=== PATIENT | female | born 1990 | race Two or more races ===

== ENCOUNTER 2017-12-16 04:05 | Inpatient (IN) | payer OTHER ==
[2017-12-16] MEDS: LACTATED RINGER'S 1,000 ML IV* (04:45)
[2017-12-16] MEDS ORDERED: LACTATED RINGER'S 1,000 ML IV (05:02)
[2017-12-16 05:21] LABS: ADD MAN DIFF? NO
[2017-12-16 05:28] LABS: WHITE BLOOD COUNT 7.5 10^3/ul (4.8-10.8)
[2017-12-16 05:28] LABS: BASOPHILS % 0.4 % (0.0-2.0); EOSINOPHILS % 0.5 % (0.0-7.0); HEMATOCRIT 31.5 % (37.0-47.0); HEMOGLOBIN 11.1 g/dl (12.0-16.0); LYMPHOCYTES # 1.8 10^3/ul (0.8-2.9); LYMPHOCYTES % 23.4 % (15.0-51.0); MEAN CORPUSCULAR HGB CONC 35.2 g/dl (32.0-37.0); MEAN CORPUSCULAR VOLUME 90.8 fl (82.0-101.0); MEAN PLATELET VOLUME 10.9 fl (7.4-10.4); MONOCYTE # 0.6 10^3/ul (0.3-0.9); MONOCYTES % 8.5 % (0.0-11.0); NEUTROPHILS % 66.9 % (39.0-77.0); PLATELET COUNT 169 10^3/UL (140-415); RED BLOOD COUNT 3.47 10^6/ul (4.20-5.40); RED CELL DISTRIBUTION WIDTH 12.2 % (11.5-14.5)
[2017-12-16] MEDS ORDERED: CARBOPROST 250 MCG INJ IM ×2 (05:30→06:30)
[2017-12-16] MEDS ORDERED: METHYLERGONOVINE 0.2 MG INJ IM ×2 (05:30→06:30)
[2017-12-16] MEDS ORDERED: MISOPROSTOL 200 MCG TAB PR ×2 (05:30→06:30)
[2017-12-16] MEDS ORDERED: OXYTOCIN 30 UNITS/LR 500 ML IV ×2 (05:30→06:30)
[2017-12-16 05:47] LABS: INR 0.94; PROTIME 12.7 Sec (11.9-14.9)
[2017-12-16 05:48] LABS: PARTIAL THROMBOPLASTIN TIME 31.1 Sec (25.0-35.0)
[2017-12-16] MEDS ORDERED: BUPIVACAINE 0.75%/DEXT (SPINAL) 2 ML INJ (06:09)
[2017-12-16] MEDS ORDERED: FENTAnyl 50 MCG/ML VIAL (06:09)
[2017-12-16] MEDS ORDERED: morphine SULFATE/PF (10 MG/10 ML) INJ (06:09)
[2017-12-16] MEDS ORDERED: CEFAZOLIN 2 GM/50 ML (PMX) 50 ML IVPB (06:10)
[2017-12-16] MEDS ORDERED: PHENYLephrine (100 MCG/ML) 5ML SYG (06:18)
[2017-12-16] MEDS ORDERED: DEXAMETHASONE 4 MG/ML 1 ML INJ (06:18)
[2017-12-16] MEDS ORDERED: ONDANSETRON 4 MG INJ (06:20)
[2017-12-16] MEDS: OXYTOCIN 30 UNITS/LR 500 ML IV ×2 (06:25→07:39)
[2017-12-16] MEDS ORDERED: NA PHOSPHATE/BIPHOS 133 ML ENEMA PR (06:30)
[2017-12-16] MEDS: CEFAZOLIN 2 GM/50 ML (PMX) 50 ML IVPB ×3 (06:30→17:43)
[2017-12-16] MEDS ORDERED: METHYLERGONOVINE 0.2 MG TAB PO (06:30)
[2017-12-16 06:37] LABS: HEPATITIS B SURFACE ANTIGEN NEGATIVE (NEGATIVE)
[2017-12-16] MEDS ORDERED: DIPHENHYDRAMINE 50 MG INJ IV (07:30)
[2017-12-16] MEDS ORDERED: NALOXONE (0.4 MG/ML) INJ IV (07:30)
[2017-12-16] MEDS ORDERED: ZOLPIDEM 5 MG TAB PO (07:30)
[2017-12-16] MEDS ORDERED: HYDROmorphONE 0.5 MG/0.5 ML SYG IV ×2 (07:30)
[2017-12-16] MEDS ORDERED: ONDANSETRON 4 MG INJ IV (07:30)
[2017-12-16] MEDS: SENNA/DOCUSATE NA (8.6MG/50MG) TAB PO ×2 (09:00→21:34)
[2017-12-16] MEDS: KETOROLAC 30 MG INJ IV (09:25)
[2017-12-16] MEDS: LACTATED RINGER'S 1,000 ML IV ×3 (12:53→22:25)
[2017-12-16 16:05] LABS: RAPID PLASMA REAGIN NONREACTIVE (NR)
[2017-12-17] MEDS: KETOROLAC 30 MG INJ IV (02:39)
[2017-12-17] MEDS: CEFAZOLIN 2 GM/50 ML (PMX) 50 ML IVPB ×3 (02:47→02:49)
[2017-12-17] MEDS: IBUPROFEN 800 MG TAB PO ×3 (06:00→22:15)
[2017-12-17] MEDS: SENNA/DOCUSATE NA (8.6MG/50MG) TAB PO ×2 (08:53→21:05)
[2017-12-17 09:19] LABS: ADD MAN DIFF? NO
[2017-12-17 09:29] LABS: BASOPHILS % 0.3 % (0.0-2.0); EOSINOPHILS % 0.1 % (0.0-7.0); HEMATOCRIT 28.7 % (37.0-47.0); HEMOGLOBIN 9.7 g/dl (12.0-16.0); IMMATURE GRANS #M 0.03 10^3/ul; IMMATURE GRANS % (M) 0.3 %; LYMPHOCYTES # 1.3 10^3/ul (0.8-2.9); LYMPHOCYTES % 14.5 % (15.0-51.0); MEAN CORPUSCULAR HEMOGLOBIN 31.1 pg (29.0-33.0); MEAN CORPUSCULAR HGB CONC 33.8 g/dl (32.0-37.0); MONOCYTE # 0.6 10^3/ul (0.3-0.9); MONOCYTES % 6.7 % (0.0-11.0); NEUTROPHILS % 78.1 % (39.0-77.0); PLATELET COUNT 155 10^3/UL (140-415); RED BLOOD COUNT 3.12 10^6/ul (4.20-5.40); RED CELL DISTRIBUTION WIDTH 12.6 % (11.5-14.5)
[2017-12-17] MEDS: HYDROCODONE/APAP (5/325) TAB PO ×2 (12:43→21:05)
[2017-12-17] MEDS: BISACODYL (EC) 5 MG TAB PO (12:44)
[2017-12-17 15:45] LABS: RHOGAM PROFILE 1 1
[2017-12-17] MEDS: LANOLIN 7 GM TUBE TOP (19:04)
[2017-12-18] MEDS: HYDROCODONE/APAP (5/325) TAB PO (05:07)
[2017-12-18] MEDS: IBUPROFEN 800 MG TAB PO ×3 (05:56→21:27)
[2017-12-18] MEDS: SENNA/DOCUSATE NA (8.6MG/50MG) TAB PO ×2 (09:46→21:27)
[2017-12-19] MEDS: IBUPROFEN 800 MG TAB PO (05:12)
[2017-12-19] MEDS: MEASLES,MUMPS,RUBELLA VACCINE INJ SC* (09:00)
[2017-12-19] MEDS: SENNA/DOCUSATE NA (8.6MG/50MG) TAB PO (09:29)
[2017-12-19] MEDS: DIPHTH/TET/ACEL PERTUSS (ADULT) 0.5 ML VIAL IM* (11:19)
== END 2017-12-19 13:45 | disposition home or self-care (01) | DRG 766 ==
LOC: L-D 04:05 → PP1 09:43
PROVIDERS: Obstetrics & Gynecology
PROC: 10D00Z1 Extraction of Products of Conception, Low, Open Approach (ICD-10-PCS; principal; 2017-12-16 06:00)
DX: O34.219 Maternal care for unspecified type scar from previous cesarean delivery (principal); O99.02 Anemia complicating childbirth; D64.9 Anemia, unspecified; O36.63X0 Maternal care for excessive fetal growth, third trimester, not applicable or unspecified; Z37.0 Single live birth; Z3A.39 39 weeks gestation of pregnancy
CPT/HCPCS: 85025; 85610; 85730; 86592; 86850; 86885; 86900; 86901; 87340; 90715; 99464